=== PATIENT | male | born 1990 | race Caucasian/White ===

== ENCOUNTER 2021-10-27 21:31 | Emergency (ER) | payer OTHER ==
[~2021-10-27] VITALS: Ht 167.6 cm; Wt 70.3 kg
--- NOTE | 2021-10-27 21:50 | NUR ---
Patient ambulatory with a steady gait
[2021-10-27 21:54] VITALS: BP 122/70
--- NOTE | 2021-10-27 21:54 | NUR ---
Patient does not wish to proceed with medical care recommended by Dr. Hodges. Patient given information related to possible complications, up to and including , which could occur as a result of leaving the hospital at this time. Patient verbalizes understanding of risks involved due to leaving against medical advice. Patient has signed AMA form.
== END 2021-10-27 21:56 | disposition left against medical advice (07) ==
LOC: ER 21:35 → EDBD 21:35 → ER 21:56
DX: T40.2X1A Poisoning by other opioids, accidental (unintentional), initial encounter (principal); Y92.89 Other specified places as the place of occurrence of the external cause